=== PATIENT | female | born 1990 | race Two or more races ===

== ENCOUNTER 2021-07-21 16:50 | Emergency (ER) | payer BC, MEDICAID ==
[~2021-07-21] VITALS: Ht 154.9 cm; Wt 102.1 kg
[2021-07-21 19:50] VITALS: BP 109/67
== END 2021-07-21 20:27 | disposition home or self-care (01) ==
LOC: ER 16:50
DX: U07.1 COVID-19 (principal)
CPT/HCPCS: 36415; 71045; 87426